=== PATIENT | male | born 1990 | race African-American/Black ===

== ENCOUNTER 2020-09-21 09:25 | Emergency (ER) | payer OTHER ==
[~2020-09-21] VITALS: Ht 167.6 cm; Wt 70.0 kg
[2020-09-21] MEDS ORDERED: NS 1,000 ML IV ONE ×2 (09:45→11:00)
[2020-09-21] MEDS ORDERED: ONDANSETRON 4MG/2ML VIAL IV ONE (09:45)
[2020-09-21] MEDS: MORPHINE 4 MG/ML 1ML VIAL/SYRINGE (J2270) IV PRN ×2 (09:53→11:44)
[2020-09-21 10:00] LABS: BASO % 0.1 % (0.0-1.0); EOS % 0.1 % (0.0-3.0); HEMATOCRIT 38.2 % (42.0-52.0); LYMPH # 1.1 10^3/uL (1.5-5.0); LYMPH % 10.6 % (24.0-44.0); MEAN CORPUSCULAR HEMOGLOBIN 31.4 pg (27.0-33.0); MEAN CORPUSCULAR VOLUME 92.3 fl (80.0-96.0); MONO # 0.9 10^3/uL (0.0-0.8); MONO % 9.5 % (0.0-5.0); NEUTROPHILS # 7.9 10^3/uL (1.5-8.5); NEUTROPHILS % 79.4 % (36.0-66.0); PLATELET COUNT, AUTOMATED 352 10^3/uL (150-450); RED BLOOD COUNT 4.14 10^6/uL (4.30-6.10); WHITE BLOOD COUNT 9.9 10^3/uL (4.0-10.0)
[2020-09-21 10:28] LABS: ALBUMIN 4.1 GM/DL (3.2-5.2); BILIRUBIN,DIRECT 0.2 MG/DL (0.0-0.2); BILIRUBIN,TOTAL 0.6 MG/DL (0.2-1.0); TOTAL PROTEIN 8.1 GM/DL (6.4-8.2)
[2020-09-21] MEDS ORDERED: ISOVUE-370 76% 100ML VIAL As Ordered ONE (10:54)
--- NOTE | 2020-09-21 11:56 | REP ---
INDICATION: abd pain. COMPARISON: None. TECHNIQUE: Helical scanning was acquired and 4 mm axial images are re-formatted. Coronal and sagittal MPR images were generated and reviewed. The contrast enhancement dose is 100 mL of intravenous Isovue 370. FINDINGS: Preliminary digital [employer] radiograph is unremarkable. The bowel gas pattern is normal. The lung bases are clear on axial CT images. There is no evidence of pleural effusion or ascites. The liver and the spleen are normal in size homogeneous in texture. Normal adrenal glands are seen. No abnormality is noted in the gallbladder or the pancreas. There is a tiny accessory splenule adjacent to the pancreatic tail. The kidneys enhance symmetrically and are morphologically intact. No retroperitoneal mass or adenopathy is seen. Small and large bowel loops are unremarkable in the upper abdomen. In the pelvis, there is no evidence of mass or adenopathy. Prostate, seminal vesicles, and urinary bladder are unremarkable. A normal appendix is seen filled with some air and without evidence of inflammation in the right central superior pelvis near the midline. No abdominal wall defect is seen. No abnormal fluid collection or free air is seen. No evidence of gastrointestinal obstruction. IMPRESSION: Negative CT study of the abdomen and pelvis with IV contrast. Normal appendix seen. <Electronically signed by Jose Puentes > 09/21/20 [id number]
[2020-09-21] MEDS ORDERED: GI COCKTAIL 50ML BTL(HYOSCYAMINE/MAALOX/LIDOCAINE VISCOUS)(1:3:1) PO ONE (12:15)
[2020-09-21] MEDS ORDERED: PANTOPRAZOLE 40MG VIAL (C9113 PER 1) IV ONE (12:15)
[2020-09-21] MEDS ORDERED: PROT1TAB2 PO (13:13)
[2020-09-21] MEDS ORDERED: SUCR1SS PO (13:13)
[2020-09-21 14:00] VITALS: BP 153/86
== END 2020-09-21 14:23 | disposition home or self-care (01) ==
LOC: M ED 09:25
DX: R10.9 Unspecified abdominal pain (principal)
CPT/HCPCS: 74177; 80047; 80076; 83690; 85025; 96361; 96374; 96375; 96376; 99284; C9113; J2270; J2405; Q9967